=== PATIENT | male | born 1955 | race Caucasian/White ===

== ENCOUNTER → 2025-04-11 09:54 | Outpatient (BNVA) | payer OTHER, SELFPAY | PROVIDERS: PCP Family Medicine; Visit Provider Orthopaedic Surgery | DX: M17.0 Bilateral primary osteoarthritis of knee (principal); M21.162 Varus deformity, not elsewhere classified, left knee; M21.161 Varus deformity, not elsewhere classified, right knee | CPT/HCPCS: 99204 ==

== ENCOUNTER 2025-05-09 13:45 | Emergency (ER) | payer OTHER, SELFPAY ==
[2025-05-09 13:59] VITALS: BP 163/98; PULSE 77; RESP 17; TEMP 36.4; O2SAT 97; BMI 28.4
--- NOTE | 2025-05-09 15:24 | W.ED.FALL ---
HPI - Fall General: Chief Complaint: Back Pain/Injury Stated Complaint: R foot, L hand, back pain Time Seen by Provider: 05/09/25 15:24 Related Data Home Medications ?Medication ?Instructions ?Recorded ?Confirmed gabapentin 300 mg capsule 300 mg PO BID 04/11/25 04/11/25 Previous Rx's ?Medication ?Instructions ?Recorded hinged knee brace (right) #1 ea 04/11/25 Allergies Allergy/AdvReac Type Severity Reaction Status Date / Time bupropion (From Wellbutrin) Allergy ALGY-Rash Verified 04/11/25 10:07 PFS ED PFSH: Social History Smoking and tobacco/nicotine status: current every day tobacco/nicotine user Course Vital Signs: Vital signs: Vital Signs Temperature 97.6 F 05/09/25 13:59 Pulse Rate 77 05/09/25 13:59 Respiratory Rate 17 05/09/25 13:59 Blood Pressure 163/98 05/09/25 13:59 Pulse Oximetry 97 05/09/25 13:59 Oxygen Delivery Me thod Room Air 05/09/25 13:59 Discharge Plan Discharge Condition: Stable Prescriptions: No Action gabapentin 300 mg capsule 300 mg PO BID (DME) hinged knee brace (right) See Rx Instructions .Route .MEDSUPPLY Qty: 1 0RF Rx Instructions: As directed Referrals: Sharlene Iniguez MD [Primary Care Provider, Family Practice] Print Language: Indonesian Coding Level of Care Code ED Account Retention Representative for Chintan rPuett
[2025-05-09 15:39] VITALS: BP 171/104
--- NOTE | 2025-05-09 15:41 | W.ED.EXTPRO ---
HPI - Extremity Problem General: Chief complaint: Back Pain/Injury Stated complaint: R foot, L hand, back pain Time Seen by Provider: 05/09/25 15:24 Source: patient Mode of arrival: ambulatory Limitations: no limitations History of Present Illness: Patient is a 70-year-old male who presents to the ED today with a few separate complaint. He tells me he fell approximately 2 days ago after his knee gave out on him. He states he injured his right lower back. He has been ambulatory since the fall without difficulty or assistance. He is refusing x-ray stating I know nothing is broke-if it was I would tell you . He is not complaining of any radicular symptoms. He also has a complaint of infection involving 2 of his left fingers as well as his right foot. He feels like he had ingrown nails here and has tried to clip them at home and now feels like they are infected. MD Complaint: extremity pain and other (back pain) Onset (ago): day(s) Pain Consistency: constant Location: left, right, upper extremity, lower extremity and other (back) Radiation: none Relieving factors: nothing Exacerbating factors: nothing Associated symptoms: Reports no associated symptoms; Deny chest pain or fever(s) Related Data Home Medications ?Medication ?Instructions ?Recorded ?Confirmed gabapentin 300 mg capsule 300 mg PO BID 04/11/25 04/11/25 Previous Rx's ?Medication ?Instructions ?Recorded hinged knee brace (right) #1 ea 04/11/25 doxycycline monohydrate 100 mg 100 mg PO Q12H 10 days #20 caps 05/09/25 capsule tramadol 50 mg tablet 50 mg PO Q6H PRN pain #10 tabs 05/09/25 Allergies Allergy/AdvReac Type Severity Reaction Status Date / Time bupropion (From Wellbutrin) Allergy ALGY-Rash Verified 04/11/25 10:07 Review of Systems Const: Denies: fever(s), chills, body aches, fatigue or malaise Card: Denies: chest pain Resp: Denies: dyspnea GI: Denies: abdominal pain : Denies: flank pain, dysuria or hematuria Musc: Reports: back pain and extremity pain (L fingers, R toe/foot); Denies: neck pain, joint pain, joint swelling, joint redness, muscle cramps or muscle weakness Neuro: Denies: headache(s), numbness in extremities, weakness in extremities or sensory changes PFSH ED PFSH: Social History Smoking and tobacco/nicotine status: current every day tobacco/nicotine user Physical Exam Const: COMMON NORMALS: no acute distress, average body habitus, patient oriented x3, no limitations, healthy appearing, alert and well nourished GENERAL APPEARANCE: cooperative Neck/C-Spine: COMMON NORMALS: full ROM GENERAL: Yes normal visual inspection CERVICAL SPINE: No Cervical spine tenderness Chest: COMMONS NORMALS: normal inspection of the chest and normal palpation of entire chest wall Resp: COMMON NORMALS: normal respiratory effort and clear to auscultation bilaterally AUSCULTATION: clear to auscultation bilaterally Cardio: COMMON NORMALS: regular rate and regular rhythm RATE: regular rate RHYTHM: regular rhythm : COMMON NORMALS: Yes no CVA tenderness BLADDER/KIDNEY EXAM: Yes no CVA tenderness Back/Pelvis: COMMON NORMALS: no CVA tenderness THORACIC SPINE/UPPER BACK: No thoracic spinal tenderness and No paraspinal muscle tenderness LUMBAR SPINE/LOWER BACK: Yes lumbar spinal tenderness, Yes paraspinal muscle tenderness Lumbar paraspinal muscle tenderness: right, No mass present and Yes straight leg raise negative bilaterally PELVIS: Yes buttocks normal and No sciatic notch tenderness SACROILIAC JOINTS: Yes SI joints normal SACRUM: no tenderness COCCYX: no tenderness Extremity: COMMON NORMALS: full ROM, capillary refill normal, no joint enlargement and no calf tenderness GENERAL: Yes normal exam except as noted LEFT UPPER EXTREMITY: Yes hand & digits Left hand and digits: Yes ROM (normal) and Yes neurovascular exam (normal radial pulse; normal cap refill; sensation intact) RIGHT LOWER EXTREMITY: Yes foot & digits Right foot and digits: Yes inspection (foot is erythematous when compared to L; no warmth/streaking), Yes palpation (reporting tenderness to distal R toe; hypertrophic toenails), Yes ROM (normal), Yes neurovascular exam (normal) and Yes tendon exam (normal) OTHER: reports tenderness along distal tips of L 4-5 digits; he does have a paronychia to L 4th digit and I was able to easily express a small amount of purulent material where he had attempted to clip/cut out an ingrown portion of the nail; there is no erythema/warmth/streaking; all fingers are generally cool to the touch patient has attempted to clip R great toenail-says he potentially tried to dig out an ingrown nail; has tenderness and possibly developing infection to tip of toe; foot is red but not warm to the touch-pulses are faintly present bilaterally-I suspect pt has PAD due to chronic everyday smoking and this is dependent rubor but could be cellulitis Neuro: COMMON NORMALS: patient oriented x3, moves all extremities, no focal motor deficits, no sensory deficits noted and gait normal SENSORIUM/ORIENTATION: Yes alert Skin: NARRATIVE SKIN EXAM: see above Course Vital Signs: Vital signs: Vital Signs Temperature 97.6 F 05/09/25 13:59 Pulse Rate 77 05/09/25 13:59 Respiratory Rate 17 05/09/25 13:59 Blood Pressure 171/104 05/09/25 15:39 Pulse Oximetry 97 05/09/25 13:59 Oxygen Delivery Me thod Room Air 05/09/25 13:59 MDM - Extremity (Nontraumatic) Medical Decision Making Patient is a 70-year-old male here for lower back pain following a fall 2 days ago as well as infection involving 2 of his left fingers and his great toe/foot. He refuses imaging of his lower back. He states he knows it is not broken. He has no acute neurologic deficits. He does have a left finger paronychia-mild. He has hypertrophic toenails that he has attempted to clip and probably is introduced infection. I did discuss how he probably has PAD due to his chronic smoking but patient refuses to believe this. He states he just wants antibiotics for his infection . I think he would benefit from seeing podiatry which he seemed somewhat agreeable to. No evidence at this time for limb ischemia. I do not feel labs overall would foreign exchange position clerk. He is also requesting something for pain. Differential Diagnosis Likely cellulitis, lower extremity edema and deep vein thrombosis of lower extremity Medical Records I reviewed the patient's medical records. No radiology studies performed this visit Discharge Plan Discharge Patient Disposition: Home Clinical Impression: Acute paronychia of finger of left hand, Hypertrophic toenail, Cellulitis of foot, right Condition: Stable Prescriptions: New tramadol 50 mg tablet 50 mg PO Q6H PRN (Reason: pain) Qty: 10 0RF doxycycline monohydrate 100 mg capsule 100 mg PO Q12H 10 Days Qty: 20 0RF No Action gabapentin 300 mg capsule 300 mg PO BID (DME) hinged knee brace (right) See Rx Instructions .Route .MEDSUPPLY Qty: 1 0RF Rx Instructions: As directed Discharge Orders: Discharge ED (Routine); Ordered 05/09/25 Ordered By: Mabel Morris Referrals: Sharlene Iniguez MD [Primary Care Provider, Family Practice] Patient Instructions: Patient Portal & Edward Instructions Activity Restrictions/Additional Instructions: As we discussed, I will place a case management referral for podiatry for further evaluation involving your feet and toenails. [facility] Print Language: Kinyarwanda Coding Level of Care Code ED Gun Club Manager for Chintan Pruett
== END 2025-05-09 15:56 | disposition home or self-care (01) ==
PROVIDERS: Emergency Provider Physician Assistant; PCP Family Medicine
DX: L03.012 Cellulitis of left finger (principal); Q84.5 Enlarged and hypertrophic nails; L03.115 Cellulitis of right lower limb; Z72.0 Tobacco use
CPT/HCPCS: 99283

== ENCOUNTER 2025-05-24 14:03 | Emergency (ER) | payer OTHER, SELFPAY ==
[2025-05-24 14:11] VITALS: BP 174/89; PULSE 83; RESP 18; TEMP 36.7; O2SAT 96; BMI 28.7
--- NOTE | 2025-05-24 15:05 | XR_ITS ---
WS: [id number] Exam: XR foot RT min 3V* [id number] Date/Time of Exam: 05/24/2025 3:10 PM Reason For Exam: pain No acute fracture. Degenerative changes in the IP and first MP joints. Degenerative changes in the midfoot joints. Soft tissues are unremarkable. XR/XR foot RT min 3V* [id number] IMPRESSION: 1. No fracture. 2. Moderate degenerative changes and osteopenia.
[2025-05-24 15:19] VITALS: BP 176/92; PULSE 76; O2SAT 98
--- NOTE | 2025-05-24 15:31 | W.ED.EXTPRO ---
HPI - Extremity Problem General: Chief complaint: Extremity Injury, Lower Stated complaint: R foot pain, swelling Time Seen by Provider: 05/24/25 15:05 History of Present Illness: 70-year-old male presents emergency room with right foot pain and swelling was seen 2 weeks ago for similar complaint took 10 days antibiotics seem to be getting better now worsened again no fever sweats chills extreme tenderness to the tip of the toe Associated symptoms: Deny chest pain, fever(s) or rash Related Data Home Medications ?Medication ?Instructions ?Recorded ?Confirmed gabapentin 300 mg capsule 300 mg PO BID 04/11/25 04/11/25 Previous Rx's ?Medication ?Instructions ?Recorded hinged knee brace (right) #1 ea 04/11/25 tramadol 50 mg tablet 50 mg PO Q6H PRN pain #10 tabs 05/09/25 diclofenac sodium 75 mg 75 mg PO Q12H PRN pain #20 tabs 05/24/25 tablet,delayed release doxycycline hyclate 100 mg capsule 100 mg PO BID 10 days #20 caps 05/24/25 Allergies Allergy/AdvReac Type Severity Reaction Status Date / Time bupropion (From Wellbutrin) Allergy ALGY-Rash Verified 05/24/25 14:20 Review of Systems Const: Denies: fever(s) or chills Card: Denies: chest pain Resp: Denies: dyspnea GI: Denies: abdominal pain : Denies: dysuria, urinary frequency or urinary urgency Musc: Denies: neck pain or back pain Skin/Breast: Denies: rash PFSH ED PFSH: Social History Smoking and tobacco/nicotine status: current every day tobacco/nicotine user Physical Exam Const: COMMON NORMALS: no acute distress GENERAL APPEARANCE: cooperative and comfortable ORIENTATION/CONSCIOUSNESS: Yes awake, Yes oriented to person, Yes oriented to place and Yes oriented to time HENMT: COMMON NORMALS: normocephalic, atraumatic and hearing grossly normal bilaterally HEAD & SCALP: normocephalic and atraumatic Resp: COMMON NORMALS: normal respiratory effort, No retractions, No use of accessory muscles and clear to auscultation bilaterally AUSCULTATION: clear to auscultation bilaterally Cardio: COMMON NORMALS: regular rate, regular rhythm and No murmurs present (Cardio) RATE: regular rate RHYTHM: regular rhythm GI: COMMON NORMALS: Soft to palpation and No hepatosplenomegaly present AUSCULTATION: Yes normoactive bowel sounds PALPATION: Yes Soft to palpation, No Tenderness to palpation present (GI), No Guarding due to palpation present (GI) and Yes No hepatosplenomegaly present Extremity: OTHER: Mild redness to the tip of the right great toe. Onychomycosis of the great toenail. There is some separation on the leading edge of the nail some mucousy discharge. No proximal lymphangitic streaking Neuro: SENSORIUM/ORIENTATION: Yes oriented to person, Yes oriented to place and Yes oriented to time Skin: COMMON NORMALS: no rashes or lesions noted GENERAL SKIN EXAM: no rashes or lesions noted Course Vital Signs: Vital signs: Vital Signs Temperature 98.1 F 05/24/25 14:11 Pulse Rate 81 05/24/25 16:10 Respiratory Rate 18 05/24/25 14:11 Blood Pressure 175/102 05/24/25 16:10 Pulse Oximetry 96 05/24/25 16:10 Oxygen Delivery Me thod Room Air 05/24/25 15:19 MDM - Extremity (Nontraumatic) Medical Decision Making Medical decision making Social determinants: None I reviewed the patient's medical record. I reviewed the patient's current home meds. Alternate historians: None Differential diagnosis:[] Lab Review: CBC CMP reviewed on the chart. Alk phos mildly elevated otherwise no significant abnormalities. Imaging: X-ray of the right foot no acute fracture no signs of osteomyelitis Assessment of risk Level of risk: Low Hospitalization considerations: No indication for hospitalization Reexamination: Unchanged Assessment and plan:Discharge home and diclofenac for pain doxycycline 100 mg twice a day and refer to podiatry. Avoid manipulation of the nail. Return if develops fever Lab Data 05/24/25 15:16 05/24/25 15:16 Radiology Impressions Foot X-Ray 05/24/25 15:05 IMPRESSION: 1. No fracture. 2. Moderate degenerative changes and osteopenia. Laboratory Results WBC 8.38 10^3/uL (3.29-11.43) 05/24/25 15:16 RBC 4.56 10^6/uL (3.85-5.65) 05/24/25 15:16 Hgb 13.60 g/dL (11.27-16.99) 05/24/25 15:16 Hct 41.5 % (37-53) 05/24/25 15:16 MCV 91.0 fl (82-101) 05/24/25 15:16 MCH 29.8 pg (27-33) 05/24/25 15:16 MCHC 32.8 g/dL (30-55) 05/24/25 15:16 RDW 12.7 % (12.1-15.1) 05/24/25 15:16 Plt Count 356 10^3/cmm (157-399) 05/24/25 15:16 MPV 8.4 fL (7.4-10.4) 05/24/25 15:16 Neut % (Auto) 64.2 % 05/24/25 15:16 Lymph % (Auto) 22.4 % 05/24/25 15:16 Morrison % (Auto) 6.8 % 05/24/25 15:16 Eos % (Auto) 5.1 % 05/24/25 15:16 Baso % (Auto) 1.1 % 05/24/25 15:16 Neut # (Auto) 5.38 10^3/uL (1.8-7.7) 05/24/25 15:16 Lymph # (Auto) 1.9 10^3/uL (0.8-4.8) 05/24/25 15:16 Morrison # (Auto) 0.6 10^3/uL (0.2-0.9) 05/24/25 15:16 Eos # (Auto) 0.4 10^3/uL (0.0-0.8) 05/24/25 15:16 Baso # (Auto) 0.1 10^3/uL (0.0-0.1) 05/24/25 15:16 Nucleated RBC % (auto) 0 % 05/24/25 15:16 Nucleated RBCs # 0.0 /100WBC 05/24/25 15:16 Sodium 135 mmol/L (136-145) L 05/24/25 15:16 Potassium 4.3 mmol/L (3.5-5.1) 05/24/25 15:16 Chloride 96 mmol/L (98-107) L 05/24/25 15:16 Carbon Dioxide 28 mmol/L (22-29) 05/24/25 15:16 Anion Gap 15.3 (5-19) 05/24/25 15:16 BUN 9 mg/dL (8-23) 05/24/25 15:16 Creatinine 0.6 mg/dL (0.7-1.2) L 05/24/25 15:16 GFR Calculation 133.2 mL/min (90-130) H 05/24/25 15:16 Glucose 108 mg/dL (65-115) 05/24/25 15:16 Calculated Osmolality 279 mOsm/kg (285-295) L 05/24/25 15:16 Calcium 9.7 mg/dL (8.5-10.5) 05/24/25 15:16 Total Bilirubin 0.3 mg/dL (0.15-1.2) 05/24/25 15:16 AST 12 U/L (0-40) 05/24/25 15:16 ALT 8 U/L (0-41) 05/24/25 15:16 Alkaline Phosphatase 156 U/L (40-130) H 05/24/25 15:16 Total Protein 7.6 g/dL (6.6-8.7) 05/24/25 15:16 Albumin 4.5 g/dL (3.5-5.2) 05/24/25 15:16 Globulin 3.1 g/dL (1.3-4.6) 05/24/25 15:16 All radiology interpretation(s) finalized by discharge Discharge Plan Discharge Patient Disposition: Home Clinical Impression: Paronychia of toe of right foot Condition: Stable Prescriptions: New doxycycline hyclate 100 mg capsule 100 mg PO BID 10 Days Qty: 20 0RF diclofenac sodium 75 mg tablet,delayed release (DR/EC) 75 mg PO Q12H PRN (Reason: pain) Qty: 20 0RF No Action gabapentin 300 mg capsule 300 mg PO BID (DME) hinged knee brace (right) See Rx Instructions .Route .MEDSUPPLY Qty: 1 0RF Rx Instructions: As directed tramadol 50 mg tablet 50 mg PO Q6H PRN (Reason: pain) Qty: 10 0RF Discharge Orders: Discharge ED (Routine); Ordered 05/24/25 Ordered By: Kiko Ulrich Referrals: Sharlene Iniguez MD [Primary Care Provider, Family Practice] Discharge Diet: Usual diet Discharge Activity: Increase activity as tolerated Patient Instructions: Opioid Safety, Pain Management, Patient Portal & Edward Instructions Activity Restrictions/Additional Instructions: [facility] your healthcare needs today. It is very important that you follow up as instructed or that you return to the Emergency Department should you have concerns or if your condition changes or worsens in any way. Emergency department visits are focused on emergent conditions, in some cases you may require further evaluation on an outpatient basis. You were seen in the emergency room with complaints of toe pain with drainage. It does appear to be mildly infected. Will restart oral antibiotics 1 pill twice a day for 10 days. He also given diclofenac for pain. Case management make arrangements for you to follow-up with podiatry. (Please note that included in your discharge packet is information concerning opioid safety and pain management. This information is given to all patients were discharged from the ER regardless of their discharge diagnosis or the medicines they usually take or are prescribed.) Print Language: Korean Coding Level of Care Code ED Enamel Sprayer for Chintan Pruett
[2025-05-24 15:34] LABS: Hematocrit 41.5 % (37-53); Hemoglobin 13.60 g/dL (11.27-16.99); Mean Corpuscular HGB Conc 32.8 g/dL (30-55); Mean Corpuscular Hemoglobin 29.8 pg (27-33); Mean Corpuscular Volume 91.0 fl (82-101); Nucleated Red Blood Cells % 0 %; Platelet Count 356 10^3/cmm (157-399); Red Blood Count 4.56 10^6/uL (3.85-5.65); White Blood Count 8.38 10^3/uL (3.29-11.43)
[2025-05-24 15:39] LABS: Alanine Aminotransferase 8 U/L (0-41); Albumin Level 4.5 g/dL (3.5-5.2); Alkaline Phosphatase 156 U/L (40-130); Anion Gap 15.3 (5-19); Aspartate Amino Transferase 12 U/L (0-40); Blood Urea Nitrogen 9 mg/dL (8-23); Calcium 9.7 mg/dL (8.5-10.5); Carbon Dioxide 28 mmol/L (22-29); Chloride 96 mmol/L (98-107); Globulin 3.1 g/dL (1.3-4.6); Glucose 108 mg/dL (65-115); Osmolality Calculated 279 mOsm/kg (285-295); Potassium 4.3 mmol/L (3.5-5.1); Sodium 135 mmol/L (136-145); Total Protein 7.6 g/dL (6.6-8.7)
[2025-05-24 16:10] VITALS: BP 175/102; PULSE 81; O2SAT 96
== END 2025-05-24 16:11 | disposition home or self-care (01) ==
PROVIDERS: Emergency Provider Family Medicine; PCP Family Medicine
DX: L03.031 Cellulitis of right toe (principal); Z72.0 Tobacco use
CPT/HCPCS: 36415; 73630; 80053; 85025; 99284